=== PATIENT | male | born 1990 | race Caucasian/White ===

== ENCOUNTER 2019-02-07 14:55 | Emergency (ER) | payer BC ==
[~2019-02-07] VITALS: Ht 188 cm; Wt 97.5 kg
[2019-02-07 14:55] VITALS: BP 148/70
[2019-02-07] MEDS ORDERED: AMOX1TAB61 PO (15:46)
--- NOTE | 2019-02-07 15:46 | PHYS DOC ---
Past History Past Medical History: Asthma Past Surgical History: Tonsillectomy Alcohol Use: Occasionally Drug Use: None Adult General Chief Complaint Chief Complaint: DENTAL PROBLEM HPI HPI 29-year-old male presents with right lower dental pain. The patient has had a tooth has been irritating him for several weeks, but has been putting off going to the dentist. He presents today because of the last 2 days it seems like the gums around that are more swollen and there is a pressure feeling in addition to the baseline pain. He is concerned about infection. The patient is not so concerned about the pain. He feels that he can deal with the pain with [id number] medicines. He just wants to deal with the infection. He will call a dentist on Saturday to schedule an appointment. He denies fever or chills. Review of Systems Review of Systems Constitutional: Denies fever or chills [] Eyes: Denies change in visual acuity, redness, or eye pain [] HENT: Denies nasal congestion or sore throat. Dental pain [] Respiratory: Denies cough or shortness of breath [] Cardiovascular: No additional information not addressed in HPI [] GI: Denies abdominal pain, nausea, vomiting, bloody stools or diarrhea [] : Denies dysuria or hematuria [] Musculoskeletal: Denies back pain or joint pain [] Integument: Denies rash or skin lesions [] Neurologic: Denies headache, focal weakness or sensory changes [] Endocrine: Denies polyuria or polydipsia [] All other systems were reviewed and found to be within normal limits, except as documented in this note. Physical Exam Physical Exam Constitutional: Well developed, well nourished, no acute distress, non-toxic appearance. [] HENT: Normocephalic, atraumatic, bilateral external ears normal, oropharynx moist, no oral exudates, nose normal. Tooth #32 as gums that are erythematous and swollen. No obvious abscess.[] Eyes: PERRLA, EOMI, conjunctiva normal, no discharge. [] Neck: Normal range of motion, no tenderness, supple, no stridor. [] Cardiovascular:Heart rate regular rhythm, no murmur [] Lungs & Thorax: Bilateral breath sounds clear to auscultation [] Abdomen: Bowel sounds normal, soft, no tenderness, no masses, no pulsatile masses. [] Skin: Warm, dry, no erythema, no rash. [] Back: No tenderness, no CVA tenderness. [] Extremities: No tenderness, no cyanosis, no clubbing, ROM intact, no edema. [] Neurologic: Alert and oriented X 3, normal motor function, normal sensory function, no focal deficits noted. [] Psychologic: Affect normal, judgement normal, mood normal. [] Current Patient Data Vital Signs Vital Signs Date Time Temp Pulse Resp B/P (MAP) Pulse Ox O2 Delivery O2 Flow Rate FiO2 02/07/19 14:55 98.3 90 100 Room Air EKG EKG [] Radiology/Procedures Radiology/Procedures [] Course & Med Decision Making Course & Med Decision Making Pertinent Labs and Imaging studies reviewed. (See chart for details) Believe the patient has a dental infection. I will treat with Augmentin for 7 days. He will call a dentist on Saturday and try to get an appointment for this week. He is stable for discharge at this time. [] Dragon Disclaimer Dragon Disclaimer This electronic medical record was generated, in whole or in part, using a voice recognition dictation system. Departure Departure: Impression: Primary Impression: Dental infection Disposition: HOME, SELF-CARE Condition: STABLE Referrals: [facility] (PCP) Patient Instructions: Dental Pain, [id number] Scripts Amoxicillin/Potassium Clav (AUGMENTIN 875-125 TABLET) 1 Each Tablet 1 TAB PO BID for dental infection, #14 TAB Prov: TAQUERIA LE DO 02/07/19 TAQUERIA LE DO Feb 07, 2019 15:46
[2019-02-07] MEDS ORDERED: LIDOCAINE 2% VISCOUS 15 ML SOLUTION. ONE (15:51)
[2019-02-07] MEDS ORDERED: LIDOCAINE 2% VISCOUS 15 ML SOLUTION. SWSW ONE (16:00)
== END 2019-02-07 15:55 | disposition home or self-care (01) ==
LOC: ER 14:55
DX: K04.7 Periapical abscess without sinus (principal); J45.909 Unspecified asthma, uncomplicated; Z90.89 Acquired absence of other organs
CPT/HCPCS: 99283